=== PATIENT | female | born 1985 | race African-American/Black ===

== ENCOUNTER 2023-10-05 00:27 | Emergency (ER) | payer MEDICAID, OTHER ==
[~2023-10-05] VITALS: Ht 162.6 cm; Wt 111.0 kg
[~2023-10-05 00:27] MED LIST: CHILDREN S COUGH; PCN; TYLENOL
[2023-10-05 00:30] VITALS: TEMP 99.1; O2SAT 100
[2023-10-05] MEDS ORDERED: ACETAMINOPHEN 325MG TABLET PO ONE (01:00)
[2023-10-05] MEDS ORDERED: IPRATROPIUM/ALBUTEROL 0.5-3(2.5)MG/3ML NEB HHN ONE (01:00)
[2023-10-05 01:30] VITALS: BP 179/93; PULSE 105; RESP 20
== END 2023-10-05 02:30 | disposition left against medical advice (07) ==
LOC: ER 00:27
DX: J45.901 Unspecified asthma with (acute) exacerbation (principal); Z00.00 Encounter for general adult medical examination without abnormal findings
CPT/HCPCS: 99283; Z7610 ×2